=== PATIENT | female | born 1995 | race Caucasian/White ===

== ENCOUNTER 2017-06-02 23:51 | Emergency (ER) | payer SELFPAY ==
[~2017-06-02] VITALS: Ht 152.4 cm; Wt 70.0 kg
[2017-06-02 23:53] VITALS: Ht 152.4 cm; Wt 70.0 kg
[2017-06-03] MEDS ORDERED: morphine 4 MG/ML VIAL IV STA (00:33)
[2017-06-03] MEDS ORDERED: ONDANSETRON 4 MG INJ IV STA ×2 (00:33→01:44)
--- NOTE | 2017-06-03 01:05 | ERD ---
ER Documentation Chief Complaint Date/Time DATE: 06/03/17 TIME: 01:03 Chief Complaint c/o RUQ abd pain x 2 days. (+) n/v. HPI This is a 22-year-old female presents the emergency department today complaining of abdominal pain and nausea for the past day. Patient states she has a known history of gallstones for the past 3 years. States she has not followed up with the doctor. Denies any fevers or chills. ROS All systems reviewed and are negative except as per history of present illness. Medications Home Meds Active Scripts Ondansetron Hcl* (Zofran*) 4 Mg Tablet, 4 MG PO Q6H for NAUSEA AND/OR VOMITING, #30 TAB Prov:ASHELY CAN PA-C 06/03/17 Naproxen* (Naprosyn*) 500 Mg Tablet, 500 MG PO BID Y for PAIN AND/OR INFLAMMATION, #30 TAB Prov:ASHELY CAN PA-C 06/03/17 Hydrocodone/Acetaminophen (Sweeny 5-325 Tablet) 1 Each Tablet, 1 TAB PO Q6H Y for PAIN, #12 TAB Prov:ASHELY CAN PA-C 06/03/17 Allergies Allergies: Coded Allergies: No Known Allergy (Unverified , 06/03/17) PMhx/Soc History of Surgery: Yes (c/s x3) Hx Miscellaneous Medical Probl: Yes (gallstones) Hx Alcohol Use: No Hx Substance Use: No Hx Tobacco Use: No Smoking Status: Never smoker Physical Exam Vitals Vital Signs Date Time Temp Pulse Resp B/P Pulse Ox O2 Delivery O2 Flow Rate FiO2 06/02/17 23:53 98.1 77 18 131/78 98 Physical Exam Const: obese, NAD Head: Atraumatic Eyes: Normal Conjunctiva ENT: Normal External Ears, Nose and Mouth. Neck: Full range of motion..~ No meningismus. Resp: Clear to auscultation bilaterally Cardio: Regular rate and rhythm, no murmurs Abd: Soft, epigastric and right upper quadrant tenderness non distended. Normal bowel sounds no tenderness at McBurney's. Skin: No petechiae or rashes Back: No midline or flank tenderness Ext: No cyanosis, or edema Neur: Awake and alert Psych: Normal Mood and Affect Result Diagram: 06/03/17 0055 06/03/17 0055 Results 24 hrs Laboratory Tests Test 06/03/17 00:55 White Blood Count 9.410^3/ul Red Blood Count 4.6110^6/ul Hemoglobin 13.1g/dl Hematocrit 40.0% Mean Corpuscular Volume 86.8fl Mean Corpuscular Hemoglobin 28.4pg Mean Corpuscular Hemoglobin Concent 32.8g/dl Red Cell Distribution Width 13.7% Platelet Count 01228^3/UL Mean Platelet Volume 11.1fl Neutrophils % 48.8% Lymphocytes % 29.9% Monocytes % 7.9% Eosinophils % 12.5% Basophils % 0.5% Nucleated Red Blood Cells % 0.0/100WBC Neutrophils # 4.610^3/ul Lymphocytes # 2.810^3/ul Monocytes # 0.710^3/ul Eosinophils # 1.210^3/ul Basophils # 0.110^3/ul Nucleated Red Blood Cells # 0.010^3/ul Urine Color YELLOW Urine Clarity CLEAR Urine pH 6.0 Urine Specific [place] 1.014 Urine Ketones NEGATIVEmg/dL Urine Nitrite NEGATIVEmg/dL Urine Bilirubin NEGATIVEmg/dL Urine Urobilinogen NEGATIVEmg/dL Urine Leukocyte Esterase TRACELeu/ul Urine Microscopic RBC 1/HPF Urine Microscopic WBC 2/HPF Urine Squamous Epithelial Cells FEW/HPF Urine Hemoglobin NEGATIVEmg/dL Urine Glucose NEGATIVEmg/dL Urine Total Protein NEGATIVEmg/dl Sodium Level 141mmol/L Potassium Level 3.5mmol/L Chloride Level 106mmol/L Carbon Dioxide Level 26mmol/L Anion Gap 13 Blood Urea Nitrogen 10mg/dl Creatinine 0.76mg/dl Glucose Level 82mg/dl Calcium Level 9.8mg/dl Total Bilirubin 0.1mg/dl Direct Bilirubin 0.00mg/dl Indirect Bilirubin 0.1mg/dl Aspartate Amino Transf (AST/SGOT) 32IU/L Alanine Aminotransferase (ALT/SGPT) 41IU/L Alkaline Phosphatase 126IU/L Total Protein 7.9g/dl Albumin 4.4g/dl Globulin 3.50g/dl Albumin/Globulin Ratio 1.25 Lipase 137U/L Current Medications Medications (Trade) Dose Ordered Sig/Gurpreet Route PRN Reason Start Time Stop Time Status Last Admin Dose Admin Morphine Sulfate (morphine) 4 mg ONCE STAT IV 06/03/17 00:33 06/03/17 00:35 DC 06/03/17 00:53 Ondansetron HCl (Zofran Inj) 4 mg ONCE STAT IV 06/03/17 00:33 06/03/17 00:35 DC 06/03/17 00:53 Hydromorphone HCl (Dilaudid) 1 mg ONCE STAT IV 06/03/17 01:44 06/03/17 01:46 DC 06/03/17 02:08 Ondansetron HCl 4 mg 4 mg ONCE STAT IV 06/03/17 01:44 06/03/17 01:46 DC 06/03/17 02:07 Sodium Chloride (NS) 1,000 ml @ 1,000 mls/hr Q1H ONCE IV 06/03/17 02:00 06/03/17 02:59 06/03/17 02:08 DIAGNOSTIC IMAGING REPORT Patient: FREDERICK RIOJAS : 1995 Age: 22 Sex: F MR #: [id number] DOS: 06/03/17 0033 Ordering MD: ASHELY CAN PA-C Location: REPLACED BY [facility] Room/Bed: PROCEDURE: US Abdomen (right upper quadrant). CLINICAL INDICATION: Pain. TECHNIQUE: Multiple real-time longitudinal and transverse images of the right upper quadrant of the abdomen were acquired utilizing a curved array transducer. Images were reviewed on a high-resolution PACS workstation. COMPARISON: None FINDINGS: The liver is normal in size and echogencity. There is no focal intrahepatic mass.. Gallbladder wall is top normal thickness and 3 mm. There are multiple shadowing calcified gallstones within the gallbladder. There is no pericholecystic fluid. No intra or extrahepatic biliary dilatation is seen. The common bile duct measures 3.66 mm in maximal dimension. The visualized portions of the pancreas are unremarkable with obscuration of the tail of the pancreas. No free fluid is identified. Visualized abdominal aorta and IVC are unremarkable. The right kidney measures 9.2 cm in length. There is normal echogenicity within the right kidney. There is no perinephric fluid collection. No hydronephrosis, mass, or calculus is seen. IMPRESSION: Cholelithiasis. No ultrasound evidence for acute cholecystitis or biliary obstruction. RPTAT: HMVK .Ulises Christine MD, MD Date Time Electronically viewed and signed by .Ulises Christine MD, MD on 06/03/2017 01:37 .K/ CC: ASHELY CAN PA-C Procedures/[facility] This 22-year-old female who presents the emergency department today complaining of abdominal pain for the past day. Patient indicated she has known history of gallstones. Upon review of patient's medical records is the patient's first visit to this emergency department. Patient epigastric and right upper quadrant pain on physical exam and therefore did obtain laboratory workup as well as imaging. Laboratory workup elevated white blood cell count. She is not anemic. Platelets are within normal limits. Electrolytes within normal limits. Liver enzymes are within normal limits. Glucose has been normal limits. Lipase is within normal limits. UA shows trace leukocyte esterase urine test is negative right upper quadrant ultrasound shows gallstones. There is no evidence for acute cholecystitis or biliary obstruction. Common bile duct measures 3.6 mm in maximal dimension. There is no pericholecystic fluid. Patient was given morphine, Zofran here in the emergency department pain persisted and she was therefore given Dilaudid and IV fluids and pain improved. Symptoms at this time is consistent with gallstones and biliary colic. There is no evidence to suggest acute cholecystitis. Low suspicion for acute surgical abdomen at this time. At this time the patient is stable for discharge and outpatient management. Patient should follow up with their PCP in the next 1-2 days. They may return to the emergency department sooner for any persistent or worsening of symptoms. Patient understood and agreed with the plan. Departure Diagnosis: Primary Impression: Gallstones Additional Impression: Biliary colic Condition: Fair ASHELY CAN PA-C Jun 03, 2017 01:05
[2017-06-03 01:38] LABS: BASOPHIL # 0.1 10^3/ul (0.0-0.1); BASOPHILS % 0.5 % (0.0-2.0); EOSINOPHILS # 1.2 10^3/ul (0.0-0.5); EOSINOPHILS % 12.5 % (0.0-7.0); HEMOGLOBIN 13.1 g/dl (12.0-16.0); LYMPHOCYTES # 2.8 10^3/ul (0.8-2.9); LYMPHOCYTES % 29.9 % (15.0-51.0); MEAN CORPUSCULAR HEMOGLOBIN 28.4 pg (29.0-33.0); MEAN CORPUSCULAR HGB CONC 32.8 g/dl (32.0-37.0); MEAN CORPUSCULAR VOLUME 86.8 fl (82.0-101.0); MEAN PLATELET VOLUME 11.1 fl (7.4-10.4); MONOCYTE # 0.7 10^3/ul (0.3-0.9); MONOCYTES % 7.9 % (0.0-11.0); NEUTROPHIL # 4.6 10^3/ul (1.6-7.5); NEUTROPHILS % 48.8 % (39.0-77.0); PLATELET COUNT 283 10^3/UL (140-415); RED BLOOD COUNT 4.61 10^6/ul (4.20-5.40); RED CELL DISTRIBUTION WIDTH 13.7 % (11.5-14.5); WHITE BLOOD COUNT 9.4 10^3/ul (4.8-10.8)
--- NOTE | 2017-06-03 01:38 | RADRPT ---
PROCEDURE: US Abdomen (right upper quadrant). CLINICAL INDICATION: Pain. TECHNIQUE: Multiple real-time longitudinal and transverse images of the right upper quadrant of th e abdomen were acquired utilizing a curved array transducer. Images were reviewed on a high-resoluti on PACS workstation. COMPARISON: None FINDINGS: The liver is normal in size and echogencity. There is no focal intrahepatic mass.. Gallbladder wal l is top normal thickness and 3 mm. There are multiple shadowing calcified gallstones within the gal lbladder. There is no pericholecystic fluid. No intra or extrahepatic biliary dilatation is seen. T he common bile duct measures 3.66 mm in maximal dimension. The visualized portions of the pancreas are unremarkable with obscuration of the tail of the pancreas. No free fluid is identified. Visuali zed abdominal aorta and IVC are unremarkable. The right kidney measures 9.2 cm in length. There is normal echogenicity within the right kidney. There is no perinephric fluid collection. No hydronephrosis, mass, or calculus is seen. IMPRESSION: Cholelithiasis. No ultrasound evidence for acute cholecystitis or biliary obstruction. RPTAT: HMVK .Ulises Christine MD, MD Date Time Electronically viewed and signed by .Ulises Christine MD, MD on 06/03/2017 01:37 .K/
[2017-06-03] MEDS ORDERED: HYDROmorphONE 1 MG/ML SYG IV STA (01:44)
[2017-06-03 01:47] LABS: ADD UMIC YES; UR ASCORBIC ACID NEGATIVE (NEGATIVE); UR BILIRUBIN (Dip) NEGATIVE (NEGATIVE); UR BLOOD (Dip) NEGATIVE (NEGATIVE); UR CLARITY CLEAR (CLEAR); UR COLOR YELLOW (YELLOW); UR GLUCOSE (Dip) NEGATIVE (NEGATIVE); UR KETONES (Dip) NEGATIVE (NEGATIVE); UR LEUKOCYTE ESTERASE (Dip) TRACE Leu/ul (NEGATIVE); UR NITRITE (Dip) NEGATIVE (NEGATIVE); UR RBC 1 /HPF (0-5); UR SPECIFIC GRAVITY (Dip) 1.014 (1.003-1.030); UR SQUAMOUS EPITHELIAL CELL FEW /HPF (FEW); UR TOTAL PROTEIN (Dip) NEGATIVE (NEGATIVE); UR UROBILINOGEN (Dip) NEGATIVE (NEGATIVE)
[2017-06-03] MEDS ORDERED: SOD CHLORIDE 0.9% 1,000 ML IV ONE (02:00)
[2017-06-03 02:18] LABS: ALBUMIN 4.4 g/dl (3.3-4.9); ALBUMIN/GLOBULIN RATIO 1.25; BILIRUBIN,INDIRECT 0.1 mg/dl (0-1.1); BILIRUBIN,TOTAL 0.1 mg/dl (0.2-1.3); CALCIUM 9.8 mg/dl (8.4-10.2); CREATININE 0.76 mg/dl (0.44-1.00); POTASSIUM 3.5 mmol/L (3.5-5.1); TOTAL PROTEIN 7.9 g/dl (6.1-8.1)
[2017-06-03] MEDS ORDERED: HYDR-906 PO (02:25)
[2017-06-03] MEDS ORDERED: ONDA4TAB8 PO (02:26)
[2017-06-03] MEDS ORDERED: NAPR-260 PO (02:26)
== END 2017-06-03 03:06 | disposition home or self-care (01) ==
LOC: FTE 23:51
DX: K80.70 Calculus of gallbladder and bile duct without cholecystitis without obstruction (principal)
CPT/HCPCS: 36415; 76705; 80053; 81001; 83690; 85025; 96374; 96375; 96376; 99285; J1170; J2270; J2405; J7030